=== PATIENT | female | born 1965 | race Caucasian/White ===

== ENCOUNTER 2016-06-11 11:57 | Outpatient (CLI) | payer OTHER ==
--- NOTE | 2016-06-15 16:45 | DIAGNOSTIC IMAGING REPORT ---
PROCEDURE: NM CARDIAC STRESS TEST INDICATION: Chest pain TECHNIQUE: This was a 1-day exercise nuclear imaging stress test. 10 mCi technetium 99m labeled sestamibi used for rest imaging 25 mCi for stress imaging. Please see separately dictated stress test report for details of that portion of the study. The treadmill portion of the study was interpreted as normal. COMPARISON: None FINDINGS: Raw data shows a prominent breath shadow. SPECT imaging shows a diffuse defect involving the anterior wall most prominent on rest imaging, less prominent on stress imaging. This is most consistent with breast attenuation artifact. There are no other perfusion abnormalities. Gated SPECT imaging shows ejection fraction 69%, end-diastolic volume 93 ml, end-systolic volume 29 ml and normal wall thickening and wall motion. There is no transit ischemic dilatation, with at t.i.d. score of 0.91. IMPRESSION: Breast attenuation artifact present. No infarct or ischemia. Normal ejection fraction, left ventricular volumes, wall thickening and wall motion.
== END 2016-06-11 23:00 ==
LOC: NM SRH 11:57
PROC: 4A02XM4 Measurement of Cardiac Total Activity, External Approach (ICD-10-PCS; principal; 2016-06-11)
DX: R07.9 Chest pain, unspecified (principal)